=== PATIENT | female | born 1965 | race Caucasian/White ===

== ENCOUNTER 2016-08-21 13:46 | Day surgery (SDC) | payer OTHER ==
[~2016-08-21] VITALS: Ht 134.6 cm; Wt 55.6 kg
[~2016-08-21 13:46] MED LIST: CALC-84 PO; CALCITRIOL; FLUT16SP24 NASAL; GABA300C16 PO; IBUP-1542 PO; LORA-186 PO; OMEG1CAP29 PO; RANI300T PO; SLOW-MAG; SYN1 PO; TR1B60 TP; [UNRECOGNIZED DRUG - OTHER]; vitamin a
[2016-08-21 14:40] VITALS: Ht 134.6 cm; Wt 55.6 kg
[2016-08-21] MEDS ORDERED: PROPOFOL 60 ML ONE (15:18)
[2016-08-21] MEDS ORDERED: LIDOCAINE 2% (SDV) 5 ML INJ ONE (15:18)
[2016-08-21 15:20] VITALS: BP 136/73; PULSE 79; RESP 15
--- NOTE | 2016-08-21 16:21 | GILP ---
DATE OF PROCEDURE: 08/21/2016 NAME OF PROCEDURES: 1. Esophagogastroduodenoscopy and biopsy. 2. Colonoscopy. SURGEON: Awilda Finn MD PREOPERATIVE DIAGNOSES: 1. Abdominal pain. 2. Positive occult blood in stool. POSTOPERATIVE DIAGNOSES: 1. Gastritis with erosions. 2. Gastric mucosal biopsies were taken for Helicobacter pylori test. 3. Colonoscopy all the way to the cecum. 4. Internal and external hemorrhoids. 5. No colon neoplasm was identified. INDICATION FOR THE PROCEDURE: Ms. Syed Chung is a 50-year-old female patient who had upper abdominal pain, not responding to therapy. The patient was also noted to have positive occult blood in stool . So, the patient was scheduled for endoscopic examination and colonoscopy for further evaluation. The procedures and possible complications were well explained to the patient. The patient understoo d and consented to the procedures. DESCRIPTION OF PROCEDURE: Under the influence of anesthesia, the gastroscope was carefully introduc ed into the esophagus and under direct vision, it was advanced to the stomach and through the pyloru s into the duodenal bulb and descending duodenum. FINDINGS: ESOPHAGUS: The mucosa was normal. STOMACH: The patient had gastritis with erosions. Gastric mucosal biopsies were taken for H. pylori test. DUODENUM: Normal. The colonoscope was carefully introduced in the rectum and under direct vision, it was advanced all the way to the cecum. FINDINGS: The patient was noted to have internal and external hemorrhoids. No colitis or neoplasm was identified. She tolerated the procedures very well and there was no complication from the procedures. At the en d of the procedures, she was awake with stable vital signs and she was discharged home to the care o f her family. IMPRESSION: Please see postoperative diagnoses. PLAN: 1. Omeprazole 40 mg p.o. q.a.m. 2. Await H. pylori test report. Dictated By: AWILDA FINN MD GD/MARIA FERNANDA Conf#: [id number] DID#: [id number] CC: AWILDA FINN MD;*EndCC*
[2016-08-21 16:35] VITALS: BP 180/93; PULSE 80; RESP 12
== END 2016-08-21 18:19 | disposition home or self-care (01) ==
LOC: GIL 13:46
PROVIDERS: ATTEND Internal Medicine Gastroenterology
DX: K92.1 Melena (principal); K29.60 Other gastritis without bleeding; K64.4 Residual hemorrhoidal skin tags; K64.8 Other hemorrhoids
CPT/HCPCS: 43239; 45378; 87081; Z7610